=== PATIENT | male | born 1950 | race Caucasian/White ===

== ENCOUNTER 2020-03-01 07:26 | Day surgery (SDC) | payer MEDICARE, OTHER ==
[2020-03-01] MEDS ORDERED: LACTATED RINGERS 1,000 ML IV ONE (08:10)
[2020-03-01] MEDS ORDERED: LACTATED RINGERS 500 ML IV ONE (09:58)
[2020-03-01 10:32] VITALS: BP 116/80
== END 2020-03-01 07:27 | disposition home or self-care (01) ==
LOC: SDS 07:26
PROVIDERS: ATTEND Surgery
DX: Z12.11 Encounter for screening for malignant neoplasm of colon (principal); K64.8 Other hemorrhoids; I10 Essential (primary) hypertension
CPT/HCPCS: G0121; J7120

== ENCOUNTER 2021-04-22 11:01 | Outpatient (CLI) | payer MEDICARE, OTHER | END 2021-04-22 11:02 | disposition EMS.NT | LOC: EMS 11:01 | DX: R42 Dizziness and giddiness (principal); R55 Syncope and collapse ==

== ENCOUNTER 2021-07-12 12:25 | Outpatient (CLI) | payer MEDICARE, OTHER | END 2021-07-12 12:26 | disposition home or self-care (01) | LOC: DI 12:25 | PROVIDERS: ATTEND Physician Assistant | DX: I11.9 Hypertensive heart disease without heart failure (principal); R55 Syncope and collapse; R53.1 Weakness; I47.1 Supraventricular tachycardia | CPT/HCPCS: 93306 ==

== ENCOUNTER 2023-11-30 12:33 | Outpatient (CLI) | payer MEDICARE, OTHER ==
--- NOTE | 2023-11-30 17:26 | Ultrasound Report ---
PROCEDURE: Abdomen Limited INDICATIONS: DIASTASIS RECTI TECHNIQUE: Real-time focused scanning was performed of the abdomen, with image documentation. COMPARISONS: None. FINDINGS: Limited examination of anterior abdominal wall at the area of concern shows a 3.7 cm diastases of the abdominal wall muscles. Small umbilical hernia is also seen containing fat and isn't reducible. The umbilical defect measures 1.4 cm in width. IMPRESSION: Up to 3.7 cm diastases of the rectus abdominis muscle as above. Small umbilical hernia containing fat only and is fully reducible. Reviewed by: Evaristo Black MD on 11/30/2023 5:25 PM PDT Approved by: Evaristo Black MD on 11/30/2023 5:25 PM PDT Station ID: [id number]
== END 2023-11-30 12:34 | disposition home or self-care (01) ==
LOC: DI 12:33
PROVIDERS: ATTEND Nurse Practitioner Family
DX: M62.08 Separation of muscle (nontraumatic), other site (principal); K42.9 Umbilical hernia without obstruction or gangrene